=== PATIENT | female | born 1965 | race Caucasian/White ===

== ENCOUNTER 2019-10-16 13:38 | Outpatient (CLI) | payer MEDICARE, MEDICAID, SELFPAY ==
--- NOTE | 2019-10-16 14:11 | ECG_ITS ---
Measurements Intervals [place] Rate: 66 P: 64 OK: 153 QRS: 17 QRSD: 104 T: 79 QT: 407 QTc: 429 Interpretive Statements SINUS RHYTHM INCOMPLETE RIGHT BUNDLE BRANCH BLOCK DELAYED PRECORDIAL R/S TRANSITION BORDERLINE ECG Electronically Signed On 10-16-2019 16:57:08 INTELLIGENCE ANALYST by Lit Haro D.O.
== END 2019-10-16 13:39 | disposition home or self-care (01) ==
LOC: CHSCARD 13:45
PROVIDERS: PCP Nurse Practitioner; Visit Provider Nurse Practitioner
DX: R07.9 Chest pain, unspecified (principal)
CPT/HCPCS: 93005

== ENCOUNTER 2020-04-14 11:55 | Outpatient (CLI) | payer MEDICARE, MEDICAID, SELFPAY ==
--- NOTE | 2020-04-14 13:00 | EST_ITS ---
Patient Info Name: Sujata Layton Age: 54 years : 1965 Gender: Female Ht: 65 in Wt: 203 lbs BSA: 2.09 m2 Exam Date: 04/14/2020 1:00 PM Exam Location: [facility] Patient Status: Outpatient Admit Date: 04/14/2020 Staff Ordering Physician: Lit Haro DO Attending Provider: Lit Haro DO Exam Type: CA stress test treadmill Summary 1. 1. Abnormal Karl exercise stress test for ischemic ST changes by ECG criteria. 2. 2. Reduced functional capacity, achieving 7 METs of workload. 3. 3. Appropriate HR response to exercise. 4. 4. Appropriate HR recovery at 1 minute post exercise. 5. 5. Hypertensive response to exercise. 6. 6. No imaging with stress testing. 7. 7. Patient informed of the above results. Protocol: Karl Stress ECG Details Stage: REST Duration (min): 0 min : 46 sec Speed (mph): 0.0 Grade (%): 0 HR (bpm): 73 SBP (mmHg): 142 DBP (mmHg): 97 METS: --- Stage: REST Duration (min): 1 min : 26 sec Speed (mph): 0.0 Grade (%): 0 HR (bpm): 75 SBP (mmHg): 142 DBP (mmHg): 97 METS: --- Stage: STAGE 1 Duration (min): 1 min : 0 sec Speed (mph): 1.7 Grade (%): 10 HR (bpm): 95 SBP (mmHg): 142 DBP (mmHg): 97 METS: --- Stage: STAGE 1 Duration (min): 2 min : 0 sec Speed (mph): 1.7 Grade (%): 10 HR (bpm): 107 SBP (mmHg): 142 DBP (mmHg): 97 METS: --- Stage: STAGE 1 Duration (min): 3 min : 0 sec Speed (mph): 1.7 Grade (%): 10 HR (bpm): 106 SBP (mmHg): 203 DBP (mmHg): 89 METS: --- Stage: STAGE 2 Duration (min): 1 min : 0 sec Speed (mph): 2.5 Grade (%): 12 HR (bpm): 129 SBP (mmHg): 203 DBP (mmHg): 89 METS: --- Stage: STAGE 2 Duration (min): 2 min : 0 sec Speed (mph): 2.5 Grade (%): 12 HR (bpm): 141 SBP (mmHg): 203 DBP (mmHg): 89 METS: --- Stage: STAGE 2 Duration (min): 3 min : 0 sec Speed (mph): 2.5 Grade (%): 12 HR (bpm): 153 SBP (mmHg): 203 DBP (mmHg): 89 METS: --- Stage: RECOVERY Duration (min): 0 min : 59 sec Speed (mph): 0.0 Grade (%): 0 HR (bpm): 136 SBP (mmHg): 199 DBP (mmHg): 105 METS: --- Stage: RECOVERY Duration (min): 1 min : 59 sec Speed (mph): 0.0 Grade (%): 0 HR (bpm): 110 SBP (mmHg): 213 DBP (mmHg): 104 METS: --- Stage: RECOVERY Duration (min): 2 min : 59 sec Speed (mph): 0.0 Grade (%): 0 HR (bpm): 100 SBP (mmHg): 213 DBP (mmHg): 104 METS: --- Stage: RECOVERY Duration (min): 3 min : 59 sec Speed (mph): 0.0 Grade (%): 0 HR (bpm): --- SBP (mmHg): 181 DBP (mmHg): 99 METS: --- Stage: RECOVERY Duration (min): 4 min : 59 sec Speed (mph): 0.0 Grade (%): 0 HR (bpm): --- SBP (mmHg): 181 DBP (mmHg): 99 METS: --- Stage: RECOVERY
== END 2020-04-14 11:56 | disposition home or self-care (01) ==
LOC: CHSCARD 11:57
PROVIDERS: PCP Nurse Practitioner; Visit Provider Internal Medicine Cardiovascular Disease
DX: R07.9 Chest pain, unspecified (principal)
CPT/HCPCS: 93017

== ENCOUNTER 2021-03-25 09:14 | Emergency (ER) | payer MEDICARE, MEDICAID, SELFPAY ==
[2021-03-25 09:40] VITALS: BP 146/85; PULSE 88; RESP 16; TEMP 36.6; O2SAT 94
--- NOTE | 2021-03-25 09:48 | ED.GENADULT ---
HPI - General Adult General Chief complaint: Wound/Laceration Stated complaint: FACE SWOLLEN Source: patient Mode of arrival: ambulatory Limitations: no limitations History of Present Illness HPI narrative: Sujata is a 55F with a PMH of HTN, HLD, GERD, COPD, anxiety/depression and poor dentition that presented to the ED with swelling and pain of her left cheek. A few days ago she had a hair follicle that was red and tender so she pulled it. It continued to swell. Today she woke up and her right cheek was very swollen and painful. She has no trouble swallowing and has no SOB/ difficulty breathing. Temp was 99.8 at home. Related Data Home Medications Medication Instructions Recorded Confirmed albuterol 90 mcg/actuation aerosol mcg INHALATION 03/06/20 12/08/20 inhaler aspirin 81 mg tablet,delayed 81 mg PO DAILY 03/06/20 12/08/20 release baclofen 10 mg tablet 10 mg PO DAILY 03/06/20 12/08/20 fluticasone propionate 50 2 spray NASAL DAILY 03/06/20 12/08/20 mcg/actuation nasal spray,suspension loratadine 10 mg tablet 10 mg PO DAILY 03/06/20 12/08/20 losartan 50 mg tablet 50 mg PO DAILY 03/06/20 12/08/20 misoprostol 100 mcg tablet 100 mcg PO BID tablet 03/06/20 12/08/20 montelukast 10 mg tablet 10 mg PO DAILY 03/06/20 12/08/20 naproxen 500 mg tablet 500 mg PO BID 03/06/20 12/08/20 vits no.126-ferrous fum tablet PO DAILY tablet 03/06/20 12/08/20 28 mg iron-folic acid 800 mcg tablet triamcinolone acetonide 0.1 % 1 applic TOPICAL BID 03/06/20 12/08/20 topical cream buspirone 15 mg tablet 30 mg PO BID tablet 04/07/20 12/08/20 ezetimibe 10 mg tablet 10 mg PO DAILY 08/18/20 12/08/20 Allergies Allergy/AdvReac Type Severity Reaction Status Date / Time diclofenac AdvReac Severe diaphoresis Verified 12/08/20 13:48 Penicillins AdvReac Unknown Unknown Verified 12/08/20 13:48 simvastatin AdvReac Unknown Unknown Verified 12/08/20 13:48 sumatriptan AdvReac Unknown Unknown Verified 12/08/20 13:48 Review of Systems Constitutional: Constitutional: Reports no additional constitutional complaints Eyes: Eyes: Reports no additional eye complaints ENT: Comments: tender lymph nodes on the right side of neck Cardiovascular: Cardiovascular: Reports no additional cardiovascular complaints Respiratory: Respiratory: Reports no additional respiratory complaints Gastrointestinal: Gastrointestinal: Reports no additional gastrointestinal complaints Genitourinary: Genitourinary: Reports no additional female genitourinary complaints Musculoskeletal: Musculoskeletal: Reports no additional musculoskeletal complaints Integumentary/Breasts: Skin/Breast: Reports as per HPI Neurologic: Reports system reviewed and no additional complaints, except as documented Psychiatric: Psychiatric: Reports no additional psychiatric complaints Endocrine: Endocrine: Reports no additional endocrine complaints Hematologic/Lymphatic: Hematologic/Lymphatic: Reports no additional hematologic/lymphatic complaints Allergic/Immunologic: Allergic/Immunologic: Reports no additional allergic/immunologic complaints [facility] Past Medical History Medical History Allergic rhinitis Anxiety Breast mass, right COPD exacerbation Degenerative disc disease Depression Dyslipidemia GERD (gastroesophageal reflux disease) Hypertension Periodontitis Right bundle branch block Unspecified asthma URI, acute Surgical History Surgical History H/O laminectomy H/O spinal fusion Social History Social History Smoking packs per day: 1 Smoking cigarettes per day: 20.0 Years smoked: 25 Smoking pack-years: 25.00 Smoking status: Former smoker Additional smoking assessment comments: 2017 Alcohol intake: current Alcohol use details: rarely Exam Const: General: no acute distre
[2021-03-25] MEDS: CLINDAMYCIN HCL 150 MG CAP 450 MG PO (10:35)
[2021-03-25 10:38] VITALS: RESP 16; O2SAT 99
== END 2021-03-25 10:38 | disposition home or self-care (01) ==
PROVIDERS: Emergency Provider Family Medicine; PCP Nurse Practitioner
DX: L03.211 Cellulitis of face (principal)
CPT/HCPCS: 99283; A9270

== ENCOUNTER 2021-07-07 09:42 | Outpatient (CLI) | payer MEDICARE, MEDICAID, SELFPAY ==
--- NOTE | ~2021-07-07 | CT_ITS ---
EXAMINATION: CT lung screening EXAM DATE: 07/07/2021 10:02 INDICATION: Personal Hx Of Tobacco Dependence. Smoker screening-previous smoker, COPD. TECHNIQUE: Spiral low dose CT of the chest without contrast. Axial, coronal and sagittal images were reviewed. The dose-length product (DLP) for this examination was 169.09 mGy-cm. The exposure was t ailored according to patient size (auto mA exposure control), and iterative reconstruction (ASIR) was used as additional dose reduction technique. There is no prior study for comparison. FINDINGS: The lungs are clear. Tracheobronchial tree is patent. There is no mediastinal, hilar o r axillary lymphadenopathy. There are no pleural or pericardial effusions. There is no pneumothor ax. Heart normal in size. No evidence of coronary arterial calcification. Nonspecific left liver lobe lesion measuring 1.5 cm. Differential diagnosis includes hemangioma, hepatic adenoma, primary o r metastatic malignancy. There is mild thoracic spondylosis without osteoblastic or osteolytic lesion s identified. IMPRESSION: 1. Lung-RADS category 1S, negative (<1%chance of malignancy); recommend continued LDCT screening in 1 year. 2. Small indeterminate left liver lobe lesion; liver MRI without and with contrast is most specific f or evaluating liver lesions. Reviewed, dictated and finalized at [facility]. IMPRESSION: 1. Lung-RADS category 1S, negative (<1%chance of malignancy); recommend continu ed LDCT screening in 1 year. 2. Small indeterminate left liver lobe lesion; liver MRI without and with contr ast is most specific for evaluating liver lesions.
== END 2021-07-07 09:43 | disposition home or self-care (01) ==
LOC: CHSIMG 09:43
PROVIDERS: PCP Nurse Practitioner; Visit Provider Nurse Practitioner
DX: Z12.2 Encounter for screening for malignant neoplasm of respiratory organs (principal); Z87.891 Personal history of nicotine dependence
CPT/HCPCS: 71271

== ENCOUNTER 2021-07-31 07:57 | Outpatient (CLI) | payer MEDICARE, MEDICAID, SELFPAY ==
--- NOTE | ~2021-07-31 | CT_ITS ---
EXAMINATION: CT abdomen wo/w con DATE: 07/31/2021 08:56 INDICATION: Liver lesion discovered on CT lung screen scan TECHNIQUE: Computed tomography (CT) of the abdomen and pelvis was performed without and with 100 cc O mnipaque 350 intravenous contrast, with postcontrast imaging in the arterial and venous phases. Autom ated exposure control and iterative reconstruction technique were employed. Exam dose: 2287.88 mGy-c m total exam DLP. COMPARISON: None. FINDINGS: Normal heart size. No pericardial or pleural effusion. The lung bases are clear of infiltra te or consolidation. There is minimal bibasilar dependent lower lobe atelectasis. Bilateral fat-containing foramen of [place]dale[place] hernias. There is an approximately 1.4 cm lesion of the anterior aspect of the medial segment of the left hepa tic lobe,; this is nearly isodense with normal hepatic parenchyma on noncontrast examination and pred ominantly hypodense on the postcontrast imaging, especially venous phase. There is suggestion of some peripheral interrupted puddling of contrast material on the venous scan, suggesting benign hemangiom a. MR liver examination is recommended to confirm this impression. No surface nodularity of the liver is noted to suggest cirrhosis or possible regenerating nodule. Metastasis or hepatocellular carcinom a are considered less likely of an hemangioma. The gallbladder is absent. There is a 2.8 cm right parapelvic cyst. There are couple of small cortical cysts of the upper pole r ight kidney measuring up to 5 mm. 2.9 cm left renal cyst. There are 1 or possibly 2 pinpoint nonobstructing mid to upper left renal calculi. No hydronephrosis of either kidney. There is an approximately 8.4 x 6.7 x 8.9 cm chronic cystic collection along the anterior aspect of t he left iliopsoas muscle with thin partially calcified capsule. There are likely chronic encapsulated hematoma or seroma. Normal caliber of the abdominal aorta with atherosclerotic calcification. No intraperitoneal or retro peritoneal mass lesion or adenopathy or ascites. No bowel obstruction or intraperitoneal free air is detected. Small fat-containing umbilical hernia. Approximately 2.2 cm wide midline ventral supraumbilical abdominal wall defect with fat herniation me asuring up to 2 x centimeters depth 6.2 cm width. Status post posterior and interbody spinal fusion at L4-S1. IMPRESSION: Suspected 1.4 cm hemangioma of left lobe of liver; MRI would be helpful for more definit mary alice confirmation Bilateral foramen of [place] fat-containing hernias 2.8 cm right parapelvic cyst and up to 5 mm upper pole right renal cysts, 2.9 cm left renal cyst 1 or 2 pinpoint nonobstructing left renal calculi 8.4 x 6.7 x 8.9 cm chronic cystic collection, likely old hematoma or seroma, along the anterior aspec t of the iliopsoas muscle, with thin partially calcified capsule 2.2 cm wide midline ventral supraumbilical abdominal wall defect with fat herniation Reviewed, dictated and finalized at [facility]. Reviewed, dictated and finalized at [facility]. APPRENTICE IMPRESSION: Suspected 1.4 cm hemangioma of left lobe of liver; MRI would be he lpful for more definitive confirmation Bilateral foramen of [place] fat-containing hernias 2.8 cm right parapelvic cyst and up to 5 mm upper pole right renal cysts, 2.9 c m left renal cyst 1 or 2 pinpoint nonobstructing left renal calculi 8.4 x 6.7 x 8.9 cm chronic cystic collection, likely old hematoma or seroma, al keny the anterior aspect of the iliopsoas muscle, with thin partially calcified capsule 2.2 cm wide midline ventral supraumbilical abdominal wall defect with fat herni ation
[2021-07-31 08:24] LABS: Estimated Glomerular Filt Rate > 60
== END 2021-07-31 07:58 | disposition home or self-care (01) ==
PROVIDERS: PCP Nurse Practitioner; Visit Provider Nurse Practitioner
DX: K76.9 Liver disease, unspecified (principal)
CPT/HCPCS: 74170; Q9967